=== PATIENT | female | born 1990 | race Caucasian/White ===

== ENCOUNTER → 2025-05-02 10:04 | Outpatient (REF) | payer OTHER, MEDICARE, SELFPAY | LOC: RAD 10:04 | PROVIDERS: ATTENDING PHYSICIAN Psychiatry & Neurology Neurology; FAMILY PHYSICIAN Family Medicine | DX: G56.02 Carpal tunnel syndrome, left upper limb (principal) | CPT/HCPCS: 76882 ==

== ENCOUNTER 2025-05-28 06:19 | Day surgery (SDC) | payer OTHER, SELFPAY | END 2025-05-28 12:31 | disposition home or self-care (01) | LOC: GI 06:19 | PROVIDERS: ATTENDING PHYSICIAN Internal Medicine Gastroenterology | DX: R12 Heartburn (principal); R13.10 Dysphagia, unspecified; K31.7 Polyp of stomach and duodenum; K22.89 Other specified disease of esophagus; K31.89 Other diseases of stomach and duodenum; K29.50 Unspecified chronic gastritis without bleeding; K86.89 Other specified diseases of pancreas; R89.7 Abnormal histological findings in specimens from other organs, systems and tissues | CPT/HCPCS: 43239; 88305; 88342 ==

== ENCOUNTER → 2025-06-12 15:14 | Outpatient (REF) | payer OTHER, SELFPAY | LOC: MRI 15:14 | PROVIDERS: ATTENDING PHYSICIAN Internal Medicine Gastroenterology; FAMILY PHYSICIAN Family Medicine | DX: K76.0 Fatty (change of) liver, not elsewhere classified (principal) | CPT/HCPCS: 74181; 76391 ==